=== PATIENT | male | born 1950 | race Caucasian/White ===

== ENCOUNTER 2021-08-07 13:01 | Emergency (ER) | payer OTHER, MEDICARE ==
[2021-08-07 13:31] LABS: BASOPHIL 0.4 % (0-2); HCT 40.4 % (42.0-52.0); HGB 14.1 g/dl (13.2-18.0); LYMPHOCYTE 18.1 % (15-48); MCH 31.5 pg (25.0-31.0); MCHC 34.9 g/dL (32.0-36.0); MCV 90.4 fL (78.0-100.0); MONOCYTE 6.5 % (0-12); MPV 10.4 fL (6.0-9.5); NEUTROPHIL 73.4 % (41-80); NRBC 0; PLT 265 K/uL (150-400); RBC 4.47 M/uL (4.70-6.00); RDW 12.7 % (11.5-14.0)
[2021-08-07 13:34] LABS: INR 1.09 (0.9-1.2); PROTHROMBIN TIME 13.5 SECONDS (11.8-13.4); PTT 27.5 SECONDS (24.4-34.7)
[2021-08-07 13:45] LABS: ALBUMIN 3.5 g/dL (3.4-5.0); BILIRUBIN - TOTAL 0.9 mg/dL (0.2-1.0); BUN/CREAT RATIO (CALC) 29.9 RATIO; CREATININE 0.77 mg/dL (0.67-1.17); POTASSIUM 3.1 mmol/L (3.5-5.1); TOTAL PROTEIN 6.5 g/dL (6.4-8.2)
[2021-08-07 16:44] LABS: BILIRUBIN NEGATIVE (NEGATIVE); BLOOD TRACE-LYSED Ery/uL (NEGATIVE); CLARITY CLEAR (CLEAR); COLOR YELLOW (YELLOW); GLUCOSE (U) 1+ mg/dL (NORMAL); LEUKOCYTES NEGATIVE Leu/uL (NEGATIVE); NITRITE NEGATIVE (NEGATIVE); PROTEIN NEGATIVE (NEGATIVE)
[2021-08-07] MEDS ORDERED: PERCOCET 7.5/321 TAB PO (19:09)
== END 2021-08-07 19:46 | disposition home or self-care (01) ==
LOC: FER 13:01
PROVIDERS: Emergency Medicine
DX: S43.005A Unspecified dislocation of left shoulder joint, initial encounter (principal); S70.02XA Contusion of left hip, initial encounter; S00.81XA Abrasion of other part of head, initial encounter; S40.212A Abrasion of left shoulder, initial encounter; I48.91 Unspecified atrial fibrillation; E11.9 Type 2 diabetes mellitus without complications; Z79.899 Other long term (current) drug therapy; Z79.82 Long term (current) use of aspirin; Z79.02 Long term (current) use of antithrombotics/antiplatelets; V48.5XXA Car driver injured in noncollision transport accident in traffic accident, initial encounter
CPT/HCPCS: 36415; 70450; 71260; 72125; 72128; 72131; 73030; 73502; 73700; 80053; 81001; 83690; 84145; 84484; 85025; 85610; 85730; 86850; 86900; 86901; 93005; 96374; 96375; 96376; 99152; J1170; J2405; J2704; J3010; J7030; Q9967